=== PATIENT | male | born 1995 | race Two or more races ===

== ENCOUNTER 2022-07-21 21:08 | Emergency (ER) | payer MEDICAID ==
[~2022-07-21] VITALS: Ht 170.2 cm; Wt 82.8 kg
[2022-07-21 21:20] VITALS: BP 164/118
[2022-07-22] MEDS ORDERED: azithromycin 250mg tablet PO ONE (00:45)
[2022-07-22] MEDS ORDERED: FLUT16SP2 BOTHNARES (00:48)
[2022-07-22] MEDS ORDERED: AZIT-83 PO (00:48)
== END 2022-07-22 00:59 | disposition home or self-care (01) ==
LOC: ER 21:08
DX: R50.9 Fever, unspecified (principal); R51.9 Headache, unspecified; Z79.899 Other long term (current) drug therapy
CPT/HCPCS: 99283